=== PATIENT | male | born 1975 | race Caucasian/White ===

== ENCOUNTER 2020-09-09 10:16 | Emergency (ER) | payer SELFPAY ==
[~2020-09-09] VITALS: Ht 180.3 cm; Wt 159.0 kg
[2020-09-09 10:18] VITALS: BP 152/94
[2020-09-09] MEDS ORDERED: IBUPROFEN 600MG TABLET PO STA (10:28)
[2020-09-09] MEDS ORDERED: HYDROCODONE/ACETAMINOPHEN 5/325MG TABLET PO ONE (10:45)
[2020-09-09] MEDS ORDERED: ONDANSETRON 4MG ODT PO ONE (10:45)
== END 2020-09-09 13:50 | disposition home or self-care (01) ==
LOC: ER 10:16
DX: M25.561 Pain in right knee (principal); S82.091A Other fracture of right patella, initial encounter for closed fracture; E11.9 Type 2 diabetes mellitus without complications; E78.00 Pure hypercholesterolemia, unspecified; W01.0XXA Fall on same level from slipping, tripping and stumbling without subsequent striking against object, initial encounter; Y93.9 Activity, unspecified; Y92.9 Unspecified place or not applicable
CPT/HCPCS: 73562; 73700; 99284; L1830; Q0162; Z7610